=== PATIENT | male | born 1980 ===

== ENCOUNTER 2017-04-01 23:51 | Inpatient (IN) | payer OTHER ==
[2017-04-02] MEDS ORDERED: Lidocaine 1% Inj (20ml) IJ ONE (00:26)
--- NOTE | 2017-04-02 00:30 | ED PDOC ---
HPI: General Adult History Per: Patient History/Exam Limitations: intoxication, language barrier <Tuan Dee - Last Filed: 04/02/17 05:52> <El Ferreira - Last Filed: 04/02/17 20:10> Time Seen by Provider: 04/02/17 00:06 Chief Complaint (Nursing): Abnormal Skin Integrity Additional Complaint(s): Pt. BIBA for apparent ETOH intoxication and arm laceration. As per pt. he fell down and injured his L armpit causing a laceration. Pt. states he drank 2 beers. (Tuan Dee) Past Medical History Reviewed: Historical Data, Nursing Documentation, Vital Signs - Family History Family History: States: No Known Family Hx <Tuan Dee - Last Filed: 04/02/17 05:52> <El Ferreira - Last Filed: 04/02/17 20:10> Vital Signs: Last Vital Signs Temp 98.1 F 04/02/17 19:00 Pulse 96 H 04/02/17 19:00 Resp 18 04/02/17 19:00 BP 149/85 04/02/17 19:00 Pulse Ox 98 04/02/17 19:00 - Allergies Allergies/Adverse Reactions: Allergies Allergy/AdvReac Type Severity Reaction Status Date / Time No Known Allergies Allergy Verified 04/01/17 23:57 Review of Systems ROS Statement: Except As Marked, All Systems Reviewed And Found Negative <Tuan Dee - Last Filed: 04/02/17 05:52> Physical Exam - Reviewed Nursing Documentation Reviewed: Yes Vital Signs Reviewed: Yes - Physical Exam Appears: Positive for: Well, Non-toxic, No Acute Distress Head Exam: Positive for: ATRAUMATIC, NORMAL INSPECTION, NORMOCEPHALIC Skin: Positive for: Normal Color, Warm. Negative for: Rash Eye Exam: Positive for: EOMI, Normal appearance, PERRL ENT: Positive for: Normal ENT Inspection Neck: Positive for: Normal, Painless ROM Cardiovascular/Chest: Positive for: Regular Rate, Rhythm Respiratory: Positive for: CNT, Normal Breath Sounds Gastrointestinal/Abdominal: Positive for: Normal Exam, Bowel Sounds, Soft. Negative for: Tenderness Back: Positive for: Normal Inspection. Negative for: Vertebral Tenderness ( cervical spine) Extremity: Positive for: Normal ROM, Other (L axilla with 2 inch linear laceration) Neurologic/Psych: Positive for: Alert, Oriented, Gait (unsteady), Other ( slurred speech; AOB). Negative for: Aphasia, Facial Droop <Tuan Dee - Last Filed: 04/02/17 05:52> - Laboratory Results Result Diagrams: 04/02/17 00:43 04/02/17 00:43 - ECG ECG: Positive for: Interpreted By Me ECG Rhythm: Positive for: Sinus Rhythm. Negative for: ST/T Changes Rate: 84 O2 Sat by Pulse Oximetry: 98 - Radiology X-Ray: Interpreted by Me (CXR) X-Ray Interpretation: No Acute Disease <Tuan Dee - Last Filed: 04/02/17 05:52> - Laboratory Results Result Diagrams: 04/02/17 16:00 04/02/17 16:00 - Critical Care Total Time (In Min): 30 <lE Ferreira - Last Filed: 04/02/17 20:10> Procedures - Time-Out Type of Procedure: Laceration repair Site of Procedure: L axillary chest Correct Patient (with visual ID + MR# on ID Band): Yes Correct Procedure: Yes Correct Site Marked: Yes X-Ray Marked: Yes - Laceration/Wound Repair Laceration repair Wound Length (cm): 7 Wound's Depth, Shape: superficial, linear Wound Explored: no foreign body removed Irrigated w/ Saline (ccs): 500 Betadine Prep?: Yes Anesthesia: 1% Lidocaine Volume Anesthetic (ccs): 4 Wound Repaired With: Mely (7) Wound Complexity: Simple <Tuan Dee - Last Filed: 04/02/17 05:52> ED OBSERVATION Date of observation admission: 04/02/17 Time of observation admission: 00:27 <Tuan Dee - Last Filed: 04/02/17 05:52> <El Ferreira - Last Filed: 04/02/17 20:10> - Observation admission statement Patient is being placed in observation because:: arm injury, ETOH (Tuan Dee) - Progress Note Progress Note: 04/02/17 01:56 Labs redrawn. Labs reviewed with Dr. Ferreiar who then evaluated pt. Pt. more alert and confirmed story that he did fall and struck his L axilla onto a rock. 04/02/17 03:03 HgB [address].2[address] As per Dr. Ferreira's discussion with patient, pt. denies melena, hematochezia, BRBPR, hematemesis but has been feeling dizzy. Pt. states he has never been evaluated by a doctor. Rectal exam done by PA which showed anal fissures but no masses or hemorrhoids or blood noted. Brown stool noted. Hemoccult test ordered and sent to lab. Pt. alert and awake. No slurred speech. Clinically sober. Blood transfusion obtained by Dr. Ferreira. 2 units of blood ordered. Protonix IV ordered. Dr. Ferreira discussed case with Dr. Gonzalez and arrangements made for admission. (Tuan Dee) Disposition - Patient ED Disposition Is Patient to be Admitted: Yes - Disposition Disposition Time: 03:07 <Tuan Dee - Last Filed: 04/02/17 05:52> <El Ferreira - Last Filed: 04/02/17 20:10> - Clinical Impression Clinical Impression: Alcohol intoxication, Severe anemia, GI bleed, Laceration - Disposition Condition: STABLE
[2017-04-02] MEDS ORDERED: Lidocaine 1% Inj (20ml) ONE (00:46)
[2017-04-02 01:19] LABS: MEAN PLATELET VOLUME 8.5 fl (7.2-11.7)
[2017-04-02 01:20] LABS: ALBUMIN 3.1 g/dL (3.5-5.0)
[2017-04-02 01:24] LABS: BASO # 0.1 K/uL (0.0-0.2); BASO % 0.8 % (0.0-2.0); EOS # 0.1 K/uL (0.0-0.7); LYMPH # 5.7 K/uL (1.0-4.3); LYMPH % 59.2 % (20.0-40.0); MEAN CELL VOLUME 72.1 fl (80.0-94.0); MEAN CORPUSCULAR HEMOGLOBIN 21.5 pg (27.0-31.0); MEAN CORPUSCULAR HGB CONC 29.8 g/dL (33.0-37.0); MONO # 0.3 K/uL (0.0-0.8); MONO % 3.4 % (0.0-10.0); NEUT # 3.4 K/uL (1.8-7.0); NRBC % 0.7 % (0.0-0.0); RBC 2.87 Mil/uL (4.40-5.90); RED CELL DISTRIBUTION WIDTH 22.1 % (11.5-14.5); WHITE BLOOD COUNT 9.7 K/uL (4.8-10.8)
[2017-04-02 01:34] LABS: ALB/GLOB RATIO 0.5 (1.0-2.1); ALT/SGPT 18 U/L (21-72); AST/SGOT 155 U/L (17-59); CALCIUM 7.7 mg/dL (8.4-10.2); GFR AFRICAN-AMERICAN > 60; GFR NON-AFRICAN AMERICAN > 60
[2017-04-02 01:35] LABS: BLOOD UREA NITROGEN < 2 mg/dl (9-20)
--- NOTE | 2017-04-02 01:53 | CT ---
EXAM: CT Head Without Intravenous Contrast CLINICAL HISTORY: 36 years old, male; Pain; Headache; Migraine; Aura effect not specified; Other: Do not know; Additional info: Trauma TECHNIQUE: Axial computed tomography images of the head/brain without intravenous contrast. This CT exam was performed using one or more of the following dose reduction techniques: automated exposure control, adjustment of the mA and/or kV according to patient size, and/or use of iterative reconstruction technique. Coronal and sagittal reformatted images were created and reviewed. COMPARISON: No relevant prior studies available. FINDINGS: Brain: No acute intracranial hemorrhage. No significant white matter disease. No edema. Basal ganglia calcifications are detected bilaterally. Ventricles: No significant ventriculomegaly. Bones: No acute displaced fracture. Sinuses: Unremarkable as visualized. No acute sinusitis. Mastoid air cells: Unremarkable as visualized. No mastoid effusion. IMPRESSION: No acute intracranial hemorrhage, or suspicious mass effect. Basal ganglia mineralization is prominent considering the patient's age. Still, this may be physiologic. Other considerations are prior infection, thyroid/parathyroid disease or inherited metabolic conditions.
--- NOTE | 2017-04-02 02:11 | CT ---
EXAM: CT Cervical Spine Without Intravenous Contrast CLINICAL HISTORY: 36 years old, male; Injury or trauma; Fall; Initial encounter; Bleeding/hemorrhage TECHNIQUE: Axial computed tomography images of the cervical spine without intravenous contrast. This CT exam was performed using one or more of the following dose reduction techniques: automated exposure control, adjustment of the mA and/or kV according to patient size, and/or use of iterative reconstruction technique. Coronal and sagittal reformatted images were created and reviewed. COMPARISON: No relevant prior studies available. FINDINGS: Vertebrae: No acute fracture. Alignment: Straightening and slight reversal of the normal curvature of the cervical spine, possibly muscular in origin. Discs/spinal canal/neural foramina: No acute findings. Soft tissues: Symmetric Lung apices: The visualized lung apices are clear. IMPRESSION: No acute fracture.
[2017-04-02] MEDS ORDERED: Multivitamin (MVI) 10 ML, Folic Acid 1 MG, Thiamine 100 MG in Dextrose 5%/0.45% NS 1,00... IV ONE (02:16)
[2017-04-02 02:17] LABS: HEMOGLOBIN 6.2 g/dL (12.0-18.0)
[2017-04-02] MEDS ORDERED: TDAP Vaccine 0.5 mL Syr IM ONE (02:38)
[2017-04-02] MEDS ORDERED: Povidone Iodine Topical 10% Sol ONE (02:44)
[2017-04-02] MEDS ORDERED: Multivitamin (MVI) 10 ML, Thiamine 100 MG, Folic Acid 1 MG, Magnesium Sulfate 1 GM in S... IV ONE (02:46)
[2017-04-02] MEDS ORDERED: [UNRECOGNIZED DRUG - OTHER] IV ONE (02:49)
[2017-04-02] MEDS ORDERED: MULTIVITAMIN IV ONE (02:49)
[2017-04-02] MEDS ORDERED: MAGNESIUM SULFATE IV ONE (02:49)
[2017-04-02] MEDS ORDERED: THIAMINE IV ONE (02:49)
[2017-04-02] MEDS ORDERED: FOLIC ACID IV ONE (02:49)
--- NOTE | 2017-04-02 02:53 | CP.PCM.HP ---
History of Present Illness - History of Present Illness History of Present Illness: CC: EtOH abuse with GIB and Anemia; intoxicated HPI: This is a 36 y/o male apparently with MHx significant for chronic EtOH abuse who came in with a fall and laceration of arm/axilla. He was found on labs to have a hgb of 6. Patient denies any c/o currently aside from L axilla pain. No other history provided. ROS: unable to obtain acurately MHx: EtOH abuse SHx: None, per patient Allergies: NKDA Medications: None Family Hx: Reviewed, patient provides no relevant findings Social Hx: Lives with ?friends; patient drinks '2' drinks daily, unclear exactly what volume; no tobacco Present on Admission - Present on Admission Any Indicators Present on Admission: No Meds Allergies/Adverse Reactions: Allergies Allergy/AdvReac Type Severity Reaction Status Date / Time No Known Allergies Allergy Verified 04/01/17 23:57 Physical Exam - Constitutional Appears: No Acute Distress Additional comments: intoxicated - Head Exam Head Exam: ATRAUMATIC, NORMOCEPHALIC - Eye Exam Eye Exam: EOMI, PERRL - ENT Exam ENT Exam: Mucous Membranes Dry - Neck Exam Neck exam: Positive for: Full Rom - Respiratory Exam Respiratory Exam: Clear to Auscultation Bilateral, NORMAL BREATHING PATTERN - Cardiovascular Exam Cardiovascular Exam: REGULAR RHYTHM, +S1, +S2 - GI/Abdominal Exam GI & Abdominal Exam: Normal Bowel Sounds, Soft - Extremities Exam Extremities exam: Positive for: full ROM, normal inspection Additional comments: L axilla laceration - Neurological Exam Additional comments: intoxicated, strength/sensation appear grossly intact - Psychiatric Exam Psychiatric exam: Normal Affect, Normal Mood Additional comments: patient is intoxicated, but calm - Skin Skin Exam: Dry, Warm Results - Vital Signs Recent Vital Signs: Last Vital Signs Temp 97.8 F 04/01/17 23:53 Pulse 95 H 04/01/17 23:53 Resp 16 04/01/17 23:53 BP 123/70 04/01/17 23:53 Pulse Ox 98 04/02/17 01:57 - Labs Result Diagrams: 04/02/17 00:43 04/02/17 00:43 Labs: Laboratory Results - last 24 hr 04/02/17 04/02/17 00:43 00:43 WBC 9.7 RBC 2.87 L Hgb 6.2 L* Hct 20.7 L MCV 72.1 L MCH 21.5 L MCHC 29.8 L RDW 22.1 H Plt Count 63 L MPV 8.5 Neut % (Auto) 35.6 L Lymph % (Auto) 59.2 H Riley % (Auto) 3.4 Eos % (Auto) 1.0 Baso % (Auto) 0.8 Neut # 3.4 Lymph # 5.7 H Riley # 0.3 Eos # 0.1 Baso # 0.1 Sodium 140 Potassium 3.5 L Chloride 108 H Carbon Dioxide 21 L Anion Gap 15 BUN < 2 L Creatinine 0.5 L Est GFR ( Amer) > 60 Est GFR (Non-Af Amer) > 60 Random Glucose 114 H Calcium 7.7 L Total Bilirubin 3.0 H AST 155 H ALT 18 L Alkaline Phosphatase 197 H Total Protein 9.3 H Albumin 3.1 L Globulin 6.2 H Albumin/Globulin Ratio 0.5 L Alcohol, Quantitative 372 H* - Imaging and Cardiology Chest x-ray Status: Image reviewed by me (heart appears somewhat enlarged, o/w no acute findings) CT scan - head Status: Report reviewed by me (no acute ICH) Assessment & Plan (1) ETOH abuse Assessment and Plan: 36 y/o male with EtOH abuse, likely chronic, coming in with intoxication, elevated LFTs, anemia, and GIB. -Admit tele -Patient consented for and will be receiving 2 U of PRBC per ER -NPO for now except medications -Anemia w/u ordered -IV Protonix -Banana bag with Mg/K -GI consult in AM -SCDs only for GI PPx Status: Acute (2) Abnormal LFTs Status: Acute (3) GIB (gastrointestinal bleeding) Status: Acute (4) DVT prophylaxis Status: Acute
[2017-04-02 03:22] LABS: BANDS 1 % (0-2); BASOPHIL 1 % (0-2); EOSINOPHIL 4 % (0-7); LYMPHOCYTE 16 % (20-50); MONOCYTE 3 % (0-10); NEUTROPHIL 75 % (42-75); TOTAL CELLS COUNTED 100
[2017-04-02 03:30] LABS: ANISOCYTOSIS MODERATE; HYPOCHROMIC MODERATE; PLATELET ESTIMATE SLIGHTLY DECREASED (NORMAL); TARGET CELLS SLIGHT
[2017-04-02 03:31] LABS: MICROCYTOSIS SLIGHT; TEARDROP CELLS SLIGHT
[2017-04-02 03:34] LABS: LARGE PLATELETS PRESENT; PLATELET CLUMPS PRESENT; TOXIC GRANULATION PRESENT
[2017-04-02 03:42] LABS: PLATELET COUNT 63 K/uL (130-400)
[2017-04-02 03:47] LABS: NEUT % 35.6 % (50.0-75.0)
[2017-04-02 04:15] LABS: IRON 19 ug/dL (49-181)
[2017-04-02 04:16] LABS: INR 1.8 (0.9-1.2); PROTHROMBIN TIME 20.6 Seconds (9.8-13.1)
[2017-04-02 04:24] LABS: % IRON SATURATION 8 % (20-55); TOTAL IRON BINDING CAPACITY 235 ug/dL (250-450)
--- NOTE | 2017-04-02 08:39 | CARD ---
APPROVED REPORT EKG Measurement Heart [id number] <Conclusion> Normal sinus rhythm with sinus arrhythmia Low voltage QRS Nonspecific T wave abnormality Prolonged QT Abnormal ECG
--- NOTE | 2017-04-02 09:20 | RAD ---
HISTORY: fall COMPARISON: None available. TECHNIQUE: Chest PA and lateral FINDINGS: LUNGS: No focal consolidation. 14 x 8 mm somewhat oblong density within the lateral right lower lobe of unclear etiology. Recommend CT of the chest for further evaluation. Please note that chest x-ray has limited sensitivity for the detection of pulmonary masses. PLEURA: No significant pleural effusion identified. No definite pneumothorax . CARDIOVASCULAR: The cardiomediastinal silhouette appears within normal limits of size. OSSEOUS STRUCTURES: No acute osseous abnormality identified. VISUALIZED UPPER ABDOMEN: Unremarkable. OTHER FINDINGS: None. IMPRESSION: 14 x 8 mm somewhat oblong density within the lateral right lower lobe of unclear etiology. Recommend CT of the chest for further evaluation. Study has been marked for PA review.
--- NOTE | 2017-04-02 09:32 | RAD ---
PROCEDURE: Radiographs of the Left Shoulder HISTORY: trauma COMPARISON: None available. FINDINGS: BONES: Left midshaft clavicle fracture with callus formation appears chronic. The remainder the visualized osseous structures appear intact without acute displaced fracture. The distal clavicle and underlying ribs appear intact. JOINTS: No acute dislocation. SOFT TISSUES: Soft tissues appear unremarkable. No evidence of radiopaque foreign body. IMPRESSION: Left midshaft clavicle fracture with evidence of callus formation ; appears chronic. Correlate clinically. Study has been marked for PA review.
--- NOTE | 2017-04-02 09:53 | CP.PCM.PN ---
Subjective - Date & Time of Evaluation Date of Evaluation: 04/02/17 Time of Evaluation: 11:00 - Subjective Subjective: Patient seen and examined bedside. Hemodynamically stable, afebrile. No acute issues overnight. No signs of withdrawal. No melena or hematemesis Receiving second unit of PRBC Objective - Vital Signs/Intake and Output Vital Signs (last 24 hours): Temp Pulse Resp BP Pulse Ox 98.4 F 83 18 100/56 L 97 04/02/17 08:00 04/02/17 08:00 04/02/17 08:00 04/02/17 08:00 04/02/17 08:00 - Medications Medications: Current Medications Multivitamins/Vitamin C 10 ml/Thiamine HCl 100 mg/ Folic Acid 1 mg/ Magnesium Sulfate 1 gm/ Potassium Chloride 40 meq / Dextrose/Sodium Chloride 1,033.2 mls @ 100 mls/hr IV .[id number] ONE Stop: 04/02/17 13:05 Last Admin: 04/02/17 08:29 Dose: 100 mls/hr Ondansetron HCl (Zofran Inj) 4 mg IVP Q6 PRN PRN Reason: Nausea/Vomiting Pantoprazole Sodium (Protonix Inj) 40 mg IVP DAILY RUBY Last Admin: 04/02/17 08:32 Dose: 40 mg - Labs Labs: PT 20.6 Seconds (9.8-13.1) H 04/02/17 02:59 INR 1.8 (0.9-1.2) H 04/02/17 02:59 APTT 50.0 Seconds (25.6-37.1) H 04/02/17 02:59 - Constitutional Appears: Non-toxic, No Acute Distress, Older Than Stated Age - Head Exam Head Exam: ATRAUMATIC, NORMOCEPHALIC - Eye Exam Eye Exam: EOMI, Scleral icterus Pupil Exam: NORMAL ACCOMODATION - ENT Exam ENT Exam: Mucous Membranes Moist, Normal Exam - Neck Exam Neck Exam: Full ROM, Normal Inspection - Respiratory Exam Respiratory Exam: Clear to Ausculation Bilateral, NORMAL BREATHING PATTERN. absent: Rhonchi, Wheezes - Cardiovascular Exam Cardiovascular Exam: REGULAR RHYTHM, RRR, +S1, +S2. absent: JVD - GI/Abdominal Exam GI & Abdominal Exam: Soft, Normal Bowel Sounds. absent: Tenderness, Rebound - Rectal Exam Rectal Exam: Deferred - Extremities Exam Extremities Exam: Normal Inspection. absent: Pedal Edema - Back Exam Back Exam: NORMAL INSPECTION - Neurological Exam Neurological Exam: Alert, Awake, CN II-XII Intact, Oriented x3 - Psychiatric Exam Psychiatric exam: Normal Affect - Skin Skin Exam: Dry, Normal Color Additional comments: left axilla laceration with prince in place jaundiced Assessment and Plan - Assessment and Plan (Free Text) Assessment: 36 y/o male with PMH of EtOH abuse, likely chronic, came in in with intoxication , elevated LFTs, anemia, and GIB. 1.Severe anemia Most likely acute on chronic anemia occult blood positive and iron levels verey low will transfuse 2 unit PRBC ad repeat CBc in 4 hours Venofer IV\ Gi eval with Dr. [place] Keep NPO for now IVF PPI 2. Axilla laceration stappled bY ER physicianImaging showed old left clavicular fracture with callus formation 3. ETOH intoxication and abuse Withdrawal/ seizure precautions IVF with Thimaine, folic acid and MVI Ativan PRN Counselled patient 4.Liver failure / coagulopathy/ Thrombocytopenia -- secondary to chronic ETOH abuse Bilirubin elevated 3 ; AST/ALT 155/18 :INR 1.8 plt 63K supportive care Counselled patient monitor for withdrawals Patient denies heavy drinking. ETOh levels on admission 372 5. GIB (gastrointestinal bleeding) occult blood positive GI eval for possible EGD and colonoscopy transfuse 2 unit PRBC 6.Microcytic anemia with iron deficiency started Venofer IV 7. DVT prophylaxis SCD
[2017-04-02 17:03] LABS: ALB/GLOB RATIO 0.5 (1.0-2.1); BILIRUBIN,DIRECT 2.4 mg/ml (0.0-0.4); HEMOGLOBIN 8.2 g/dL (12.0-18.0); MEAN CELL VOLUME 76.5 fl (80.0-94.0); MEAN CORPUSCULAR HEMOGLOBIN 23.3 pg (27.0-31.0); MEAN CORPUSCULAR HGB CONC 30.4 g/dL (33.0-37.0); RBC 3.52 Mil/uL (4.40-5.90); RED CELL DISTRIBUTION WIDTH 22.3 % (11.5-14.5); WHITE BLOOD COUNT 9.3 K/uL (4.8-10.8)
[2017-04-02 17:05] LABS: CALCIUM 7.1 mg/dL (8.4-10.2); GFR AFRICAN-AMERICAN > 60; GFR NON-AFRICAN AMERICAN > 60
[2017-04-02 17:06] LABS: BLOOD UREA NITROGEN < 2 mg/dl (9-20)
[2017-04-02 19:00] VITALS: RESP 18
[2017-04-02] MEDS: Pantoprazole 40 mg EC Tab PO SCH (20:41)
[2017-04-03 07:12] LABS: HEMOGLOBIN 8.2 g/dL (12.0-18.0); MEAN CELL VOLUME 77.2 fl (80.0-94.0); MEAN CORPUSCULAR HGB CONC 29.8 g/dL (33.0-37.0); RBC 3.55 Mil/uL (4.40-5.90)
[2017-04-03 07:30] LABS: ALB/GLOB RATIO 0.5 (1.0-2.1); ALT/SGPT 24 U/L (21-72); AST/SGOT 149 U/L (17-59); CALCIUM 7.3 mg/dL (8.4-10.2); GFR AFRICAN-AMERICAN > 60; GFR NON-AFRICAN AMERICAN > 60; WHITE BLOOD COUNT 10.2 K/uL (4.8-10.8)
[2017-04-03 07:55] LABS: BLOOD UREA NITROGEN < 2 mg/dl (9-20)
[2017-04-03] MEDS ORDERED: Iohexol 240 (50 ml) PO ONE (08:49)
[2017-04-03] MEDS: Pantoprazole 40 mg EC Tab PO SCH (08:58)
--- NOTE | 2017-04-03 11:23 | US ---
HISTORY: etoh hepatitis COMPARISON: None. TECHNIQUE: Sonographic evaluation of the abdomen. FINDINGS: LIVER: Measures 20.1 cm. Heterogeneous increased echogenicity of the liver parenchyma. This may reflect fatty infiltration and/ disease. Nodular contour consistent with hepatic cirrhosis. No mass. No intrahepatic biliary ductal dilatation. Portal vein demonstrates very slow bidirectional flow. This may reflect portal hypertension. There is no evidence of portal venous thrombosis. GALLBLADDER: Mild mural thickening. Gallbladder sludge. No evidence of cholelithiasis. Negative sonographic Garzon sign. COMMON BILE DUCT: Measures 3 mm. No stones. No dilatation. PANCREAS: Limited. No mass identified. RIGHT KIDNEY: Measures 10.6cm. Normal echogenicity. No calculus, mass, or hydronephrosis. LEFT KIDNEY: Measures 10.7cm. Normal echogenicity. No calculus, mass, or hydronephrosis. SPLEEN: Normal in size and contour. No mass. AORTA: Proximal abdominal aorta unremarkable. Middle and distal abdominal aorta could not be visualized due to bowel gas. IVC: Unremarkable OTHER FINDINGS: Extensive ascites IMPRESSION: Probable hepatic cirrhosis. Heterogeneous increased echogenicity, nodular contour and mild hepatomegaly. Slow bidirectional flow demonstrated in main portal vein consistent with portal hypertension. Extensive ascites. Thickened gallbladder wall, nonspecific. Gallbladder sludge without cholelithiasis.
[2017-04-03] MEDS ORDERED: Iohexol 300 100 ML IJ ONE (12:43)
[2017-04-03] MEDS ORDERED: Sodium Chloride 0.9% 50 ML IV ONE (12:44)
[2017-04-03 15:38] VITALS: BP 129/87; PULSE 99; TEMP 98.8; O2SAT 97
--- NOTE | 2017-04-03 16:23 | CT ---
PROCEDURE: CT Abdomen and Pelvis with contrast HISTORY: Jaundice COMPARISON: Abdomen ultrasound examination dated 04/02/2017 TECHNIQUE: Contrast dose: Omnipaque 300-90 cc Radiation dose: Total exam DLP = 479 mGy-cm. This CT exam was performed using one or more of the following dose reduction techniques: Automated exposure control, adjustment of the mA and/or kV according to patient size, and/or use of iterative reconstruction technique. FINDINGS: LOWER THORAX: Small loculated effusions or focal thickening of the major fissure and the right lower lobe posterior lateral posterior lateral pleura are identified with trace likely free right pleural effusion identified at the right base. Cardiac size also appears mildly prominent. No pericardial effusion. LIVER: There is hepatomegaly with slightly nodular pattern to the surface of the liver suggestive of cirrhosis once again, reiterating the ultrasound findings. No focal mass is appreciated in in the liver nevertheless. No definite intrahepatic biliary dilatation. . GALLBLADDER AND BILE DUCTS: Mildly distended with likely sympathetic mild thickening of the wall due to ascites. No extrahepatic biliary dilatation is grossly appreciated. PANCREAS: Unremarkable. No gross lesion or ductal dilatation. SPLEEN: Splenomegaly to 14.5 cm without focal mass or cyst appreciated. ADRENALS: Unremarkable. No mass. KIDNEYS AND URETERS: Unremarkable. No hydronephrosis. No solid mass. VASCULATURE: Vessel enhancement suspicious for mild gastroesophageal, gastrohepatic ligament as well as splenic varices at the left upper quadrant. No abdominal aortic aneurysm. BOWEL: Restrained motion degrades the quality of imaging through the mid to inferior abdomen. Small-bowel appears unremarkable. No obstruction. There is marked mural thickening seen throughout the colon in a pattern suggestive of pancolitis of indeterminate etiology. There is mild to moderate abdominal and pelvic ascites. APPENDIX: Normal appendix. PERITONEUM: Unremarkable. No free fluid. No free air. LYMPH NODES: Unremarkable. No enlarged lymph nodes. BLADDER: Unremarkable. REPRODUCTIVE: Unremarkable. BONES: No acute fracture. OTHER FINDINGS: None. IMPRESSION: 1. Hepatosplenomegaly is identified with a cirrhotic liver. Mild upper abdominal varices are identified as discussed above. 2. Pancreas was nonfocal however clinically correlate for potential pancreatitis as there is [id number] ascites this patient including minimally in the lesser sac. 3. Gross mural thickening of the large bowel is appreciate suggestive of pancolitis. Consider possible C difficile colitis. Other etiologies are possible. Further clinical correlation is advised. 4. Incidental loculated fluid of pleural effusions or pleural thickening is seen affecting the minor fissure as well as posterior right lower lobe pleura with the trace right "Free" appearing pleural effusion identified as well. .
--- NOTE | 2017-04-03 16:40 | CP.PCM.DIS ---
Provider - Provider Date of Admission: 04/02/17 02:23 Attending physician: Lisandro Gonzalez MD Primary care physician: None Consults: Gi consult Time Spent in preparation of Discharge (in minutes): 30 Hospital Course - Lab Results Lab Results: Most Recent Lab Values WBC 10.2 K/uL (4.8-10.8) 04/03/17 05:00 RBC 3.55 Mil/uL (4.40-5.90) L 04/03/17 05:00 Hgb 8.2 g/dL (12.0-18.0) L 04/03/17 05:00 Hct 27.4 % (35.0-51.0) L 04/03/17 05:00 MCV 77.2 fl (80.0-94.0) L 04/03/17 05:00 MCH 23.0 pg (27.0-31.0) L 04/03/17 05:00 MCHC 29.8 g/dL (33.0-37.0) L 04/03/17 05:00 RDW 22.0 % (11.5-14.5) H 04/03/17 05:00 Plt Count 41 K/uL (130-400) L 04/03/17 05:00 MPV 8.5 fl (7.2-11.7) 04/02/17 00:43 Neut % (Auto) 35.6 % (50.0-75.0) L 04/02/17 00:43 Lymph % (Auto) 59.2 % (20.0-40.0) H 04/02/17 00:43 Dickey % (Auto) 3.4 % (0.0-10.0) 04/02/17 00:43 Eos % (Auto) 1.0 % (0.0-4.0) 04/02/17 00:43 Baso % (Auto) 0.8 % (0.0-2.0) 04/02/17 00:43 Neut # 3.4 K/uL (1.8-7.0) 04/02/17 00:43 Lymph # 5.7 K/uL (1.0-4.3) H 04/02/17 00:43 Dickey # 0.3 K/uL (0.0-0.8) 04/02/17 00:43 Eos # 0.1 K/uL (0.0-0.7) 04/02/17 00:43 Baso # 0.1 K/uL (0.0-0.2) 04/02/17 00:43 Neutrophils % (Manual) 75 % (42-75) 04/02/17 00:43 Band Neutrophils % 1 % (0-2) 04/02/17 00:43 Lymphocytes % (Manual) 16 % (20-50) L 04/02/17 00:43 Monocytes % (Manual) 3 % (0-10) 04/02/17 00:43 Eosinophils % (Manual) 4 % (0-7) 04/02/17 00:43 Basophils % (Manual) 1 % (0-2) 04/02/17 00:43 Toxic Granulation Present 04/02/17 00:43 Platelet Estimate Slightly decreased (NORMAL) L 04/02/17 00:43 Plt Clumps, EDTA Present 04/02/17 00:43 Large Platelets Present 04/02/17 00:43 Hypochromasia (manual) Moderate 04/02/17 00:43 Anisocytosis (manual) Moderate 04/02/17 00:43 Microcytosis (manual) Slight 04/02/17 00:43 Target Cells Slight 04/02/17 00:43 Tear Drop Cells Slight 04/02/17 00:43 Retic Count 2.6 % (0.5-1.5) H 04/02/17 03:43 PT 20.6 Seconds (9.8-13.1) H 04/02/17 02:59 INR 1.8 (0.9-1.2) H 04/02/17 02:59 APTT 50.0 Seconds (25.6-37.1) H 04/02/17 02:59 Sodium 136 mmol/l (132-148) 04/03/17 05:00 Potassium 3.4 MMOL/L (3.6-5.0) L 04/03/17 05:00 Chloride 107 mmol/L (98-107) 04/03/17 05:00 Carbon Dioxide 21 mmol/L (22-30) L 04/03/17 05:00 Anion Gap 11 (10-20) 04/03/17 05:00 BUN < 2 mg/dl (9-20) L 04/03/17 05:00 Creatinine 0.5 mg/dL (0.8-1.5) L 04/03/17 05:00 Est GFR ( Amer) > 60 04/03/17 05:00 Est GFR (Non-Af Amer) > 60 04/03/17 05:00 Random Glucose 91 mg/dL (75-110) 04/03/17 05:00 Calcium 7.3 mg/dL (8.4-10.2) L 04/03/17 05:00 Iron 19 ug/dL (49-181) L 04/02/17 03:43 TIBC 235 ug/dL (250-450) L 04/02/17 03:43 % Saturation 8 % (20-55) L 04/02/17 03:43 Total Bilirubin 5.6 mg/dl (0.2-1.3) H 04/03/17 05:00 Direct Bilirubin 2.4 mg/ml (0.0-0.4) H 04/02/17 16:00 AST 149 U/L (17-59) H 04/03/17 05:00 ALT 24 U/L (21-72) 04/03/17 05:00 Alkaline Phosphatase 205 U/L (38-126) H 04/03/17 05:00 Total Protein 8.7 G/DL (6.3-8.2) H 04/03/17 05:00 Albumin 3.0 g/dL (3.5-5.0) L 04/03/17 05:00 Globulin 5.7 gm/dL (2.2-3.9) H 04/03/17 05:00 Albumin/Globulin Ratio 0.5 (1.0-2.1) L 04/03/17 05:00 Vitamin B12 752 pg/mL (239-931) 04/02/17 02:59 TSH 3rd Generation 5.14 mIU/ML (0.46-4.68) H 04/02/17 02:59 Stool Occult Blood Positive (NEGATIVE) H 04/02/17 02:40 Alcohol, Quantitative 127 mg/dl (0-10) H 04/02/17 16:00 Blood Type O POSITIVE 04/02/17 02:34 Antibody Screen Negative 04/02/17 02:34 Crossmatch See Detail 04/02/17 02:34 BBK History Checked No verified bt 04/02/17 02:34 - Hospital Course Hospital Course: 36 y/o male with PMH of EtOH abuse,came in intoxicated complaining of left armpit laceration . As per patient he fell down and injured his armpit. He was found to have , elevated LFTs and bilirubin ,anemia with Hgb 6 , positive occult blood. his armpit ulceratin was stapled in ER . He was admitted with severe anemia and possible GI bleed.Anemia work up was ordered and patient was transfused 2 unit PRBCV. Post transfusion Hgb was reported 8.2 and remained stable after 24 hours. His iron stores were very depleted so Venofer IV was given. Ct abdomen and pelvis reported as: 1. Hepatosplenomegaly is identified with a cirrhotic liver. Mild upper abdominal varices are identified as discussed above. 2. Pancreas was nonfocal however clinically correlate for potential pancreatitis as there is [id number] ascites this patient including minimally in the lesser sac. 3. Gross mural thickening of the large bowel is appreciate suggestive of pancolitis. Consider possible C difficile colitis. Other etiologies are possible. Further clinical correlation is advised. 4. Incidental loculated fluid of pleural effusions or pleural thickening is seen affecting the minor fissure as well as posterior right lower lobe pleura with the trace right "Free" appearing pleural effusion identified as well. GI was consulted and case was discussed. Patient at this point has advanced liver cirrhosis with poor prognosis. no further in patient management recomemnded at this time. He remained hemodynamically stable, tolerating po intake, with no signs of withdrawal no abdominal tenderness and tense ascites Counselled patient on ETOH abuse Will d/c patient home 1.Severe anemia Most likely acute blood loss anemia secondary to GI bleed ( most likely upper GI bleed since patient is an alcoholic and has varices seen on CT ) on chronic anemia due to iron deficiency occult blood was positive iron levels very low transfused 2 unit PRBC and repeat CBc Hgb 8.2 Venofer IV given GI eval with Dr. Salinas appreciated . No further in patient care at this point Tolerating Po intake Continue ferrous sulfate Po 2. Axilla laceration stapled bY ER physician Imaging showed old left clavicular fracture with callus formation Will need to come back to ER in 1 week for staple removal 3. ETOH intoxication and abuse no signs of withdrawal Given IVF with Thimaine, folic acid and MVI Ativan PRN Counselled patient 4.Liver failure with cirrhosis / coagulopathy/ Thrombocytopenia/ ascites -- secondary to chronic ETOH abuse Bilirubin elevated 3 ; AST/ALT 155/18 :INR 1.8 plt 63K supportive care Counselled patient Ct abdomen showed ascites, liver cirrhosis and varices poor prognosis start spironolactone, lo w salt diet 5. GIB (gastrointestinal bleeding) occult blood positive most likley upper Gi bleed secondary to variceal bleed GI eval appreciated No need for EGD since patient is not actively bleeding and Hgb is stable after transfusiopn PPI transfused 2 unit PRBC 6.Microcytic anemia with iron deficiency started Venofer IV continue ferrous sulfate Po 7. DVT prophylaxis SCD Discharge Exam - Head Exam Head Exam: ATRAUMATIC, NORMOCEPHALIC Additional comments: elderly looking for his age - Eye Exam Eye Exam: PERRL, Scleral icterus Pupil Exam: NORMAL ACCOMODATION - ENT Exam ENT Exam: Mucous Membranes Moist, Normal Exam - Neck Exam Neck exam: Normal Inspection - Respiratory Exam Respiratory Exam: Clear to PA & Lateral. absent: Rhonchi, Wheezes, Respiratory Distress - Cardiovascular Exam Cardiovascular Exam: REGULAR RHYTHM, RRR, +S1, +S2. absent: JVD - GI/Abdominal Exam GI & Abdominal Exam: Distended (ascites ), Normal Bowel Sounds, Soft. absent: Guarding, Rebound, Rigid, Tenderness - Rectal Exam Rectal Exam: Deferred - Extremities Exam Extremities exam: normal capillary refill, normal inspection, pedal pulses present - Back Exam Back exam: NORMAL INSPECTION - Neurological Exam Neurological exam: Alert, CN II-XII Intact, Oriented x3 - Psychiatric Exam Psychiatric exam: Normal Affect - Skin Skin Exam: Dry Additional comments: jaundice Discharge Plan - Discharge Medications Prescriptions: Ferrous Sulfate [Feosol] 325 mg PO BID #60 tab Spironolactone [Aldactone] 25 mg PO DAILY #30 tablet - Follow Up Plan Condition: GUARDED Disposition: HOME/ ROUTINE Patient education suggested?: Yes Instructions: Abuse of Alcohol (DC), Anemia (GEN) Referrals: [facility] [place] [Outside]
[2017-04-03 17:01] LABS: HEPATITIS B SURFACE AG NEGATIVE (NEGATIVE)
[2017-04-03 17:06] LABS: HEPATITIS A IGM NEGATIVE (NEGATIVE); HEPATITIS B CORE AB NEGATIVE (NEGATIVE)
[2017-04-03 17:17] LABS: HEPATITIS C ANTIBODY NEGATIVE (NEGATIVE)
[2017-04-03 22:15] LABS: FOLATE 5.6 ng/mL
--- NOTE | 2017-04-05 02:38 | CON ---
DATE: 04/02/2017 REFERRING PHYSICIAN: Dr. Gonzales REASON FOR CONSULTATION: Anemia. HISTORY OF PRESENT ILLNESS: This is a 36-year-old man, intoxicated on admission, chronic alcohol abuser, who essentially had a laceration of the left arm axilla and *------*. The patient is a poor historian and denies any hematemesis or hematochezia and is in no apparent distress. PAST MEDICAL HISTORY: As above. SURGICAL HISTORY: As above. MEDICATIONS: Reviewed. REVIEW OF SYSTEMS: Unable to obtain accurately. PHYSICAL EXAMINATION GENERAL: This is a pleasant middle-aged male, lying in bed comfortably, in no apparent distress.HEENT: Head: Normocephalic, atraumatic. Eyes: Pupils are equally reactive to light bilaterally. No conjunctival pallor or icterus. NECK: Supple. Normal range of motion. No lymphadenopathy appreciated.. LUNGS: Coarse breath sounds bilaterally. HEART: S1, S2. Regular rate and rhythm. No murmurs appreciated. ABDOMEN: Soft, nontender, bowel sounds present, *------*. RECTAL: Deferred. EXTREMITIES: Pulses present bilaterally. SKIN: Warm, dry, and intact. NEUROLOGICAL: A and O x2, a little bit confused. LABORATORY DATA: Labs reviewed. WBC is 9.3, hemoglobin of 6.2, and platelet count of 58. INR 1.8. Total bilirubin is 3.6, AST and ALT are 142 and 125, alkaline phosphatase 207. ASSESSMENT AND PLAN: This is a 36-year-old alcoholic male admitted for management of anemia. This is likely chronic. From a gastrointestinal standpoint, tests were reviewed, ultrasound is pending. Hepatitis A, B and C as well. Consider a CT. Thank you for the consult. Samm Salinas MD/ PhD cc: Dr. Gonzales
== END 2017-04-03 15:55 | disposition home or self-care (01) | DRG 468 ==
LOC: H.ER 23:51 → H.EROBSV 04-02 00:27 → OBSVTOIN 04-02 02:23 → H.ERHOLD 04-02 02:49 → H.TEL 04-02 03:41
PROVIDERS: ADMIT Internal Medicine; ATTEND Internal Medicine
PROC: 0XQ5XZZ Repair Left Axilla, External Approach (ICD-10-PCS; principal; 2017-04-02)
PROC: 30233N1 Transfusion of Nonautologous Red Blood Cells into Peripheral Vein, Percutaneous Approach (ICD-10-PCS; 2017-04-02)
PROC: 3E0334Z Introduction of Serum, Toxoid and Vaccine into Peripheral Vein, Percutaneous Approach (ICD-10-PCS; 2017-04-02)
DX: D62 Acute posthemorrhagic anemia (principal); D69.59 Other secondary thrombocytopenia; D68.4 Acquired coagulation factor deficiency; K92.2 Gastrointestinal hemorrhage, unspecified; R17 Unspecified jaundice; K70.31 Alcoholic cirrhosis of liver with ascites; W19.XXXA Unspecified fall, initial encounter; F10.229 Alcohol dependence with intoxication, unspecified; Y90.8 Blood alcohol level of 240 mg/100 ml or more; S41.112A Laceration without foreign body of left upper arm, initial encounter; Y93.9 Activity, unspecified; Y92.9 Unspecified place or not applicable; Z23 Encounter for immunization; I86.8 Varicose veins of other specified sites

== ENCOUNTER 2017-04-17 11:21 | Emergency (ER) | payer OTHER ==
[2017-04-17 11:28] VITALS: BP 118/66; PULSE 96; TEMP 98; O2SAT 98
[2017-04-17 11:29] VITALS: BMI 24.2
--- NOTE | 2017-04-17 11:48 | ED PDOC ---
HPI: Skin/Bite Injury Time Seen by Provider: 04/17/17 11:45 Chief Complaint (Nursing): Wound Check Chief Complaint (Provider): wound History Per: Patient (36 y/o male here for staple removal of laceration 2016 that occurred with fall on rock. Laceration was in axilla region. Patient has no complaints of fever/chills/pain.) Past Medical History Reviewed: Historical Data, Nursing Documentation, Vital Signs Vital Signs: Last Vital Signs Temp 98 F 04/17/17 11:26 Pulse 96 H 04/17/17 11:26 Resp BP 118/66 04/17/17 11:26 Pulse Ox 98 04/17/17 11:51 - Medical History PMH: Anemia - Family History Family History: States: No Known Family Hx - Home Medications Home Medications: Ambulatory Orders Medication Instructions Recorded Ferrous Sulfate [Feosol] 325 mg PO BID #60 tab 04/03/17 Spironolactone [Aldactone] 25 mg PO DAILY #30 tablet 04/03/17 - Allergies Allergies/Adverse Reactions: Allergies Allergy/AdvReac Type Severity Reaction Status Date / Time No Known Allergies Allergy Verified 04/01/17 23:57 Review of Systems ROS Statement: Except As Marked, All Systems Reviewed And Found Negative Physical Exam - Reviewed Nursing Documentation Reviewed: Yes Vital Signs Reviewed: Yes - Physical Exam Appears: Positive for: Well, Non-toxic, No Acute Distress Head Exam: Positive for: ATRAUMATIC, NORMAL INSPECTION, NORMOCEPHALIC Skin: Positive for: Warm. Negative for: Normal Color (well healing wound left axilla. No surrounding erythema/discharge. Seven prince intact) Eye Exam: Positive for: EOMI, Normal appearance, PERRL ENT: Positive for: Normal ENT Inspection Neck: Positive for: Normal, Painless ROM Cardiovascular/Chest: Positive for: Regular Rate, Rhythm Respiratory: Positive for: CNT, Normal Breath Sounds Gastrointestinal/Abdominal: Positive for: Normal Exam, Bowel Sounds, Soft Back: Positive for: Normal Inspection Extremity: Positive for: Normal ROM Neurologic/Psych: Positive for: Alert, Oriented - ECG O2 Sat by Pulse Oximetry: 98 - Progress ED Course And Treament: old EDIM record reviewed. Patient was admitted for GI bleeding/anemia. Was transfused 2 units blood at that time. Patient advised in ED to make f/u appt. Currently has no complaints. Prince removed with his consent and without difficulty. Disposition - Clinical Impression Clinical Impression: Removal of prince - Patient ED Disposition Is Patient to be Admitted: No - Disposition Referrals: [facility] [Outside] Disposition: Routine/Home Disposition Time: 11:49 Condition: FAIR Instructions: Stitches Removal (ED) Print Language: UPPER SORBIAN
== END 2017-04-17 13:30 | disposition home or self-care (01) ==
LOC: H.ER 11:21
DX: Z48.02 Encounter for removal of sutures (principal)